=== PATIENT | male | born 1960 | race Hispanic/Latino ===

== ENCOUNTER 2019-09-24 09:14 | Emergency (ER) | payer SELFPAY ==
[2019-09-24] MEDS ORDERED: Acetaminophen 500 MG TAB ONE (09:50)
[2019-09-24] MEDS ORDERED: Ibuprofen 800 MG TAB ONE (09:50)
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
== END 2019-09-24 10:33 | disposition home or self-care (01) ==
LOC: ERS 09:14
DX: S40.012A Contusion of left shoulder, initial encounter (principal); V89.2XXA Person injured in unspecified motor-vehicle accident, traffic, initial encounter
CPT/HCPCS: 71046